=== PATIENT | female | born 1960 | race Hispanic/Latino ===

== ENCOUNTER 2019-12-06 11:48 | Emergency (ER) | payer BC ==
--- NOTE | 2019-12-06 12:11 | Emergency Department Report ---
HPI - General Time Seen by Provider: 12/06/19 12:00 - HPI HPI: 59-year-old female presents to the emergency department from work and cardiac arrest. Per EMS, the patient was found slumped over at her desk and had previously been seen alive about 5 minutes or so prior to that. The initial EMS call was at 11:24 AM and they arrived about 5 minutes later. EMS then began ACLS protocol. The patient was intubated with a 7.0 ET tube. An IV was placed. The patient was receiving high-quality chest compressions from a [employer] machine. She received 3 rounds of epinephrine. Patient remained in asystole the entire time and upon arrival to our emergency department. Patient has a past medical history of diabetes. ED Review of Systems ROS: Stated complaint: CARDIAC ARREST Other details as noted in HPI Comment: Unobtainable due to pts medical conditions Physical Exam - Physical Exam Physical Exam: GENERAL: Patient is ill-appearing and unresponsive. HENT: Normocephalic. Atraumatic. EYES: Pupils are fixed and dilated. NECK: Supple. Trachea appears midline. CHEST/LUNGS: There are no spontaneous respirations. HEART/CARDIOVASCULAR: There are no spontaneous heart sounds. ABDOMEN: Abdomen is soft. There is no abdominal distention. SKIN: Skin is cool but dry. NEURO: Unresponsive. Does not withdraw to painful stimuli. Does not follow any commands. MUSCULOSKELETAL: There is no obvious deformity. There is no evidence of acute injury. No palpable femoral or radial pulses. ED Medical Decision Making - Medical Decision Making This patient presents to the emergency department in cardiac arrest after she was found slumped over at work. EMS intubated the patient, placed a peripheral line, began chest compressions. The patient received 3 rounds of epinephrine along with the rest of ACLS protocol and remained in asystole. Upon arrival here the patient was brought into bed #1 will be continued ACLS protocol. The patient was still pulseless and once on the monitor was in asystole as well. We continued using the [employer] machine for high-quality chest compressions. Round #1 the patient received epinephrine and sodium bicarbonate. Round #2 to the patient received epinephrine and calcium. Round #3 the patient received another dose of epinephrine. Each pulse and rhythm check the patient was pulseless and in asystole. At this point the patient had received 6 rounds of epinephrine, along with full ACLS protocol and the patient remained in asystole. Time of was called at 11:59 AM. The patient's and daughter were notified of the patient's expiration. Critical Care Time: Yes Critical care time in (mins) excluding proc time.: 15 Critical care attestation.: If time is entered above; I have spent that time in minutes in the direct care of this critically ill patient, excluding procedure time. Critical care time was spent on this patient in doing her initial evaluation, supervision of ACLS protocol, and a discussion with the patient's family about her expiration. Critical Care Time: 15 minutes ED Disposition Clinical Impression: Cardiac arrest Acute respiratory failure Qualifiers: Respiratory failure complication: unspecified whether with hypoxia or hypercapnia Qualified Code(s): J96.00 - Acute respiratory failure, unspecified whether with hypoxia or hypercapnia Disposition: DC-20 Is pt being admited?: No Condition: Stable Time of Disposition: 12:55
[2019-12-06] MEDS ORDERED: SODIUM BICARB 8.4% 50 MEQ/50 ML SYRINGE IV ONE (15:00)
[2019-12-06] MEDS ORDERED: EPINEPHrine 1 MG/10 ML SYRINGE ONE (15:00)
[2019-12-06] MEDS ORDERED: CALCIUM CHLORIDE 1,000 MG/10 ML SYRINGE IV ONE (15:00)
== END 2019-12-06 15:13 ==
LOC: ED 11:48
DX: I46.9 Cardiac arrest, cause unspecified (principal); J96.00 Acute respiratory failure, unspecified whether with hypoxia or hypercapnia
CPT/HCPCS: 92950; 99285; J0171